=== PATIENT | male | born 1965 | race Caucasian/White ===

== ENCOUNTER 2017-04-11 14:36 | Emergency (ER) | payer OTHER ==
--- NOTE | 2017-04-11 14:56 | EDPHY ---
H & P Stated Complaint: atkinson x 4 days Time Seen by Provider: 04/11/17 14:52 - Personal History Current Tetanus/Diphtheria Vaccine: Yes - Medical/Surgical History Hx Asthma: No Hx Chronic Respiratory Disease: No Hx Diabetes: No Hx Cardiac Disease: No Hx Renal Disease: No Hx Cirrhosis: No Hx Alcoholism: No Hx HIV/AIDS: No Hx Splenectomy or Spleen Trauma: No Other PMH: atypical migraines - Social History Smoking Status: Never smoked Constitutional: Initial Vital Signs Temperature (C) 36.4 C 04/11/17 14:38 Heart Rate 65 04/11/17 14:38 Respiratory Rate 16 04/11/17 14:38 Blood Pressure 134/94 H 04/11/17 14:38 O2 Sat (%) 98 04/11/17 14:38 O2 Delivery Mode Room Air Allergies/Adverse Reactions: No Known Allergies Allergy (Verified 04/11/17 14:38) Home Medications: Medication Instructions Recorded HYDROcodone/APAP [Forsan 1 - 2 each PO Q4-6PRN PRN #20 tab 04/11/17 10] Medical Decision Making - Diagnostics Imaging Results: Imaging Impressions Head CT 04/11/17 15:04 Impression: Arachnoid cyst of posterior fossa, unchanged from 2009. Report telephoned to Dr. Packer at 1550 hours. Head CTA 04/11/17 15:04 Impression: Normal. I reviewed images with Dr. Vincenzo Packer at 1635 hours. Neck CTA 04/11/17 15:21 Impression: Normal. Note: All stenoses are calculated using NASCET Criteria. I reviewed images with Dr. Vincenzo Packer at 1640 hours. Imaging: Discussed imaging studies w/ cathead operator Radiologist, I viewed and interpreted images myself ED Course/Re-evaluation: CHIEF COMPLAINT: Headache HISTORY OF PRESENT ILLNESS: The patient is a 51 y/o male complaining of a waxing and waning headache for the last 4 days that began during intercourse. He had similar headaches as a child, which he refers to as "exertion migraines, " but they have never lasted this long. He describes this headache as the " worst headache of my life." His headache is primarily located in his frontal region and sometimes behind his eyes. He currently has associated photophobia. He had now-resolved mild tingling and cold sensation in both hands earlier today. He denies weakness, current paresthesias, confusion, difficulty with balance, difficulty with speech, fever, recent illness, or other complaints. He is normally healthy. No anticoagulant or aspirin use. REVIEW OF SYSTEMS: A 10 point review of systems was performed and is negative with the exception of the elements mentioned in the history of present illness. PHYSICAL EXAM: HR, BP, O2 Sat, RR. Temp noted General Appearance: Alert, well hydrated, appropriate, and non-toxic appearing. Head: Atraumatic without scalp tenderness or obvious injury Eyes: Pupils equal, round, reactive to light and accommodation, EOMI, no trauma , no injection. Ears: Clear bilaterally, no perforation, normal landmarks Nose: Atraumatic, no rhinorrhea, clear. Throat: There is no erythema or exudates, no lesions, normal tonsils, mucus membranes moist. Neck: Supple, nontender, no lymphadenopathy. Respiratory: No retractions, no distress, no wheezes, and no accessory muscle use. Lungs are clear to auscultation bilaterally. Cardiovascular: Regular rate and rhythm, no murmurs, rubs, or gallops. Good capillary refill all extremities. Gastrointestinal: Abdomen is soft, nontender, non-distended, no masses, no rebound, no guarding, no peritoneal signs. Musculoskeletal: Normal active ROM of all extremities, atraumatic. Neurological: Alert, appropriate, and interactive. The patient has normal DTRs and non-focal cranial nerves, motor, sensory, and cerebellar exam. Skin: No rashes, good turgor, no nodules on palpation. Past medical history: Exertion migraines as a child, remote history of concussion Past surgical history: Denies Family history: noncontributory Social history: . Lives in [place]. Works for [employer]. DIAGNOSTICS/PROCEDURES/CRITICAL CARE TIME: Head CT: Large posterior arachnoid cyst unchanged from head MRI 2009 Head and Neck CTA: nothing acute DIFFERENTIAL DIAGNOSIS: The differential diagnosis for the patient's headache included but was not limited to subarachnoid hemorrhage, migraine headache, tension headache and infectious causes such as meningitis, pharyngitis and sinusitis. MEDICAL DECISION MAKING: This is a normally healthy 51 y/o male with a remote history of exertional migraines who presents with a 4-day history of severe headache and photophobia onset while having intercourse. He had some associated tingling and coldness in fingers on both hands earlier today that has since resolved. He denies other neurologic symptoms and his neuro exam is unremarkable. I am concerned for a possible subarachnoid hemorrhage and recommended CT head imaging and possibly a lumbar puncture, which the patient agreed to. Plan for symptomatic treatment with 10mg IV Decadron and 10mg IV Reglan. He has declined narcotics and I will not administer ketorolac due to the very minimal associated bleeding risk. O2 administered for possible cluster headache 1630: Reevaluated patient and discussed imaging findings. His CTs show nothing acute, though he does have posterior arachnoid cyst unchanged from previous scan in 2009. [address] CT scan is less sensitive with time for a subarachnoid hemorrhage, I've recommended a lumbar puncture to best evaluate for hemorrhage. We discussed the risks and benefits of this at length and he decided to decline the lumbar puncture at this time. His headache has improved minimally since here. He would like to pursue pain control and outpatient neurology follow up if needed. Strict return precautions given. - Data Points Laboratory Results: 04/11/17 14:57 POC Hgb 16.0 gm/dL gm/dL (13.7-17.5) POC Hct 47 % % (40-51) POC Sodium 145 mEq/L H mEq/L (134-144) POC Potassium 3.4 mEq/L mEq/L (3.3-5.0) POC Chloride 106 mEq/L mEq/L (97-110) POC BUN 13 mg/dL mg/dL (7-23) POC Creatinine 0.9 mg/dL mg/dL (0.7-1.3) POC Glucose 86 mg/dL mg/dL (70-100) Medications Given: Discontinued Medications Dexamethasone (Decadron Injection) 10 mg IVP EDNOW ONE Stop: 04/11/17 15:04 Last Admin: 04/11/17 15:14 Dose: 10 mg Sodium Chloride (Ns) 1,000 mls @ 0 mls/hr IV ONCE ONE; Wide Open PRN Reason: Protocol Stop: 04/11/17 15:04 Last Admin: 04/11/17 15:14 Dose: 1,000 mls Metoclopramide HCl (Reglan Injection) 10 mg IVP EDNOW ONE Stop: 04/11/17 15:04 Last Admin: 04/11/17 15:14 Dose: 10 mg Point of Care Test Results: 04/11/17 14:57 POC Sodium 145 H POC Potassium 3.4 POC Chloride 106 POC BUN 13 POC Creatinine 0.9 POC Glucose 86 Departure - Departure Disposition: Home, Routine, Self-Care Clinical Impression: Headache Qualifiers: Headache type: other headache syndrome Qualified Code(s): G44.89 - Other headache syndrome Condition: Good Instructions: Lumbar Puncture (ED), Acute Headache (ED) Additional Instructions: 1. Take Forsan as prescribed as needed for severe pain. This medication contains Tylenol, be sure to take no more than 3000mg of acetaminophen in a 24 hour period. 2. Follow up a neurologist in one week for further evaluation of possible migraines. 3. Return to the ED for severe pain, vision changes, difficulty with speech, numbness or weakness on one side of your body, difficulty with balance, fever, or other worsening of condition. Referrals: Mao High MD [Primary Care Provider] - As per Instructions Leonel Jones MD [Medical Doctor] - As per Instructions Prescriptions: HYDROcodone/APAP 10/325 [Forsan 10/325] 1 - 2 each PO Q4-6PRN PRN #20 tab PRN Reason: Pain, Moderate Report Scribed for: Vincenzo Packer Report Scribed by: Kiarra Brown Date of Report: 04/11/17 Time of Report: 15:03
[2017-04-11] MEDS ORDERED: NS 1,000 ML IV ONE (15:03)
[2017-04-11] MEDS ORDERED: METOCLOPRAMIDE 10 MG/2 ML VIAL IVP ONE (15:03)
[2017-04-11] MEDS ORDERED: DEXAMETHASONE 10 MG/ML VIAL IVP ONE (15:03)
[2017-04-11] MEDS ORDERED: IOPAMIDOL (ISOVUE 370) 100 ML BTL IV ONE (15:15)
[2017-04-11 16:26] VITALS: BP 128/78; PULSE 75; RESP 18; TEMP 98.4; O2SAT 97
== END 2017-04-11 17:08 | disposition home or self-care (01) ==
PROC: 3E0337Z Introduction of Electrolytic and Water Balance Substance into Peripheral Vein, Percutaneous Approach (ICD-10-PCS; principal; 2017-04-11)
DX: G44.89 Other headache syndrome (principal); E86.9 Volume depletion, unspecified
CPT/HCPCS: 82947-QW; 96374; J1100; J2765; Q9967